=== PATIENT | female | born 1985 | race Hispanic/Latino ===

== ENCOUNTER 2019-08-29 07:49 | Outpatient (CLI) | payer OTHER ==
--- NOTE | 2019-08-29 08:51 | ULT ---
GALLBLADDER ULTRASOUND: HISTORY:Elevated liver enzymes FINDINGS: The liver demonstrates homogeneous echotexture without focal mass or intrahepatic biliary ductal dila tation. Multiple shadowing gallstones are seen without gallbladder wall thickening or pericholecystic fluid. The right kidney and visualized portions of the pancreas are normal. The common duct [id number] in diameter. No free fluid is seen in the Chung's pouch. IMPRESSION: Cholelithiasis If there is high clinical suspicion for acute cholecystitis, further evaluation with HIDA scan should be performed.
== END 2019-08-29 07:50 | disposition home or self-care (01) ==
LOC: MADULT 07:49
PROVIDERS: ATTEND Family Medicine
DX: R74.8 Abnormal levels of other serum enzymes (principal); K80.20 Calculus of gallbladder without cholecystitis without obstruction
CPT/HCPCS: 76705